=== PATIENT | male | born 1965 ===

== ENCOUNTER 2017-06-26 11:24 | Emergency (ER) | payer OTHER ==
[2017-06-26 12:11] VITALS: BMI 20.2
[2017-06-26] MEDS ORDERED: Sodium Chloride 0.9% 1,000 ML IV STA (12:38)
[2017-06-26 12:59] LABS: BASO % 0.3 % (0.0-2.0); EOS % 0.3 % (0.0-4.0); HEMOGLOBIN 12.7 g/dL (12.0-18.0); LYMPH # 0.9 K/uL (1.0-4.3); LYMPH % 18.6 % (20.0-40.0); MEAN CELL VOLUME 91.2 fl (80.0-94.0); MEAN CORPUSCULAR HEMOGLOBIN 31.3 pg (27.0-31.0); MEAN CORPUSCULAR HGB CONC 34.3 g/dL (33.0-37.0); MEAN PLATELET VOLUME 7.9 fl (7.2-11.7); MONO # 0.4 K/uL (0.0-0.8); MONO % 8.9 % (0.0-10.0); NEUT # 3.4 K/uL (1.8-7.0); NEUT % 71.9 % (50.0-75.0); NRBC % 0.1 % (0.0-0.0); RBC 4.06 Mil/uL (4.40-5.90); RED CELL DISTRIBUTION WIDTH 12.4 % (11.5-14.5); URINE BILIRUBIN NEGATIVE (NEGATIVE); URINE BLOOD NEGATIVE (NEGATIVE); URINE CLARITY CLEAR (Clear); URINE COLOR STRAW (YELLOW); URINE GLUCOSE (UA) >=500 mg/dL (Normal); URINE HYALINE CAST 0-2 /hpf (0-2); URINE LEUKOCYTE ESTERASE NEG Leu/uL (Negative); URINE PROTEIN NEGATIVE (NEGATIVE); URINE UROBILINOGEN 0.2-1.0 mg/dL (0.2-1.0); WHITE BLOOD COUNT 4.7 K/uL (4.8-10.8)
[2017-06-26 13:09] LABS: ALB/GLOB RATIO 1.2 (1.0-2.1); ALBUMIN 4.1 g/dL (3.5-5.0); ALT/SGPT 45 U/L (21-72); AST/SGOT 38 U/L (17-59); BLOOD UREA NITROGEN 14 mg/dl (9-20); CALCIUM 9.6 mg/dL (8.4-10.2); GFR AFRICAN-AMERICAN > 60; GFR NON-AFRICAN AMERICAN > 60; LIPASE 224 U/L (23-300)
--- NOTE | 2017-06-26 14:03 | CT ---
PROCEDURE: CT Abdomen and Pelvis without intravenous contrast HISTORY: LEFT FLANK PAIN-- COMPARISON: None. TECHNIQUE: Unenhanced study. Neither oral nor intravenous contrast administered. Radiation dose: Total exam DLP = 306.55 mGy-cm. This CT exam was performed using one or more of the following dose reduction techniques: Automated exposure control, adjustment of the mA and/or kV according to patient size, and/or use of iterative reconstruction technique. FINDINGS: LOWER THORAX: Unremarkable. LIVER: Unremarkable. No gross lesion or ductal dilatation. GALLBLADDER AND BILE DUCTS: Unremarkable. PANCREAS: Haziness involving the distal body and tail of the pancreas which is somewhat edematous raise the possibility of acute pancreatitis. SPLEEN: Unremarkable. ADRENALS: Unremarkable. No mass. KIDNEYS AND URETERS: Unremarkable. No hydronephrosis. No solid mass. VASCULATURE: Unremarkable. No aortic aneurysm. BOWEL: The stomach is collapsed accentuating thickening of the wall of the stomach particularly in the cardia and body. APPENDIX: Unremarkable. Normal appendix. PERITONEUM: Haziness LYMPH NODES: Unremarkable. No enlarged lymph nodes. BLADDER: Unremarkable. REPRODUCTIVE: Unremarkable. BONES: No acute fracture. OTHER FINDINGS: None. IMPRESSION: Mildly edematous distal pancreatic body and tail suggesting acute pancreatitis. Gastric wall thickening likely related to absence of oral contrast and a nondistended state.
--- NOTE | 2017-06-26 14:44 | ED PDOC ---
HPI: Abdomen Time Seen by Provider: 06/26/17 12:30 Chief Complaint (Nursing): Abdominal Pain Chief Complaint (Provider): ABDOMINAL PAIN History Per: Patient (51 Y/O MALE H/O DM HERE WITH LUQ PAIN INTERMITTENT X 1 WEEK. DENIES ANY VOMITING/DIARRHEA/FEVERS/CHILLS/DYSURIA. HAS H/O ALCOHOL INTAKE BUT DENIES ANY ABUSE OR RECENT INTAKE. NO H/O SURGERIES. DID NOT TAKE ANY OTC MEDICATIONS.) Past Medical History Reviewed: Historical Data, Nursing Documentation, Vital Signs Vital Signs: Last Vital Signs Temp 98.4 F 06/26/17 12:06 Pulse 73 06/26/17 12:06 Resp 16 06/26/17 12:06 BP 127/78 06/26/17 12:06 Pulse Ox 100 06/26/17 14:49 - Family History Family History: States: No Known Family Hx - Home Medications Home Medications: Ambulatory Orders Medication Instructions Recorded Ranitidine HCl [Zantac 75] 75 mg PO Q12 PRN #10 tablet 06/26/17 - Allergies Allergies/Adverse Reactions: Allergies Allergy/AdvReac Type Severity Reaction Status Date / Time pollen extracts Allergy COUGH Verified 06/26/17 12:14 fur Allergy COUGH Uncoded 06/26/17 12:14 Review of Systems ROS Statement: Except As Marked, All Systems Reviewed And Found Negative Gastrointestinal: Positive for: Abdominal Pain Physical Exam - Reviewed Nursing Documentation Reviewed: Yes Vital Signs Reviewed: Yes - Physical Exam Appears: Positive for: Well, Non-toxic, No Acute Distress Head Exam: Positive for: ATRAUMATIC, NORMAL INSPECTION, NORMOCEPHALIC Skin: Positive for: Normal Color, Warm, DRY Eye Exam: Positive for: EOMI, Normal appearance, PERRL ENT: Positive for: Normal ENT Inspection Neck: Positive for: Normal, Painless ROM Cardiovascular/Chest: Positive for: Regular Rate, Rhythm Respiratory: Positive for: CNT, Normal Breath Sounds Gastrointestinal/Abdominal: Positive for: Normal Exam, Soft, Tenderness (LUQ MILD TENDERNESS) Back: Positive for: Normal Inspection. Negative for: L CVA Tenderness Extremity: Positive for: Normal ROM Neurologic/Psych: Positive for: Alert, Oriented - Laboratory Results Result Diagrams: 06/26/17 12:47 06/26/17 12:47 - ECG O2 Sat by Pulse Oximetry: 100 - Progress ED Course And Treament: NS 1 LITER WIDE OPEN PEPCID 20 MG I V X [address] ABD/PELVIS: IMPRESSION: Mildly edematous distal pancreatic body and tail suggesting acute pancreatitis. Gastric wall thickening likely related to absence of oral contrast and a nondistended state. D/W GI FELLOW TRACKMAN FOR DR. VERONIKA CABAN. PATIENT TO F/U OUTPATIENT. Disposition - Clinical Impression Clinical Impression: Pancreatitis - Patient ED Disposition Is Patient to be Admitted: No - Disposition Referrals: Jackeline Arciniega MD [Medical Doctor] - Disposition: Routine/Home Disposition Time: 14:57 Condition: FAIR Additional Instructions: NO ALCOHOL NO FATTY FOODS HYDRATE WELL RETURN TO ED FOR WORSENING SYMPTOMS Prescriptions: Ranitidine HCl [Zantac 75] 75 mg PO Q12 PRN #10 tablet PRN Reason: Pain, Moderate (4-7) Instructions: Pancreatitis (DC) Forms: [facility] (Portuguese), [facility] ED School/Work Excuse
[2017-06-26 16:07] VITALS: BP 110/70; PULSE 72; RESP 20; TEMP 98; O2SAT 98
== END 2017-06-26 16:05 | disposition home or self-care (01) ==
LOC: H.ER 11:24
DX: K85.90 Acute pancreatitis without necrosis or infection, unspecified (principal)
CPT/HCPCS: 74176; 80053; 81003; 82948; 83690; 85025; 96374; 99282; J7040

== ENCOUNTER 2017-08-01 14:19 | Emergency (ER) | payer OTHER ==
[2017-08-01 14:20] VITALS: BMI 20.2
[2017-08-01 14:54] VITALS: O2SAT 98
--- NOTE | 2017-08-01 16:53 | ED PDOC ---
HPI: General Adult Time Seen by Provider: 08/01/17 15:02 Chief Complaint (Nursing): ENT Problem Chief Complaint (Provider): Ingestion of chemical, throat irritation History Per: Patient History/Exam Limitations: no limitations Onset/Duration Of Symptoms: Mins (prior to arrival) Current Symptoms Are (Timing): Still Present Additional Complaint(s): 51 year old male presents to the ED for evaluation after ingesting an all purpose surface wheat cleaner called Hydroxl Pro. 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 He states after taking a gulp of it, he spit it out. Reports that he doesn't think he ingested any, and if he did, it was very little. Currently, his only complaint is throat irritation. Otherwise, (-) fever, (-) nausea, (-) vomiting, (-) abdominal pain, (-) chest pain, (-) shortness of breath (-) drooling (-) difficulty swallowing. Patient reports he has been able to tolerate PO intake since ingestion occurred. PMD: Dr. Perkins Past Medical History Reviewed: Historical Data, Nursing Documentation, Vital Signs Vital Signs: Last Vital Signs Temp 96.6 F L 08/01/17 17:02 Pulse 78 08/01/17 17:02 Resp 18 08/01/17 17:02 BP 126/76 08/01/17 17:02 Pulse Ox 98 08/03/17 20:38 - Medical History PMH: Diabetes (type 2) - Surgical History Surgical History: No Surg Hx - Family History Family History: States: Unknown Family Hx - Social History Ex-Smoker (has not smoked in the last 12 months): Yes (quit in 1999) Alcohol: None Drugs: Denies - Home Medications Home Medications: Ambulatory Orders Medication Instructions Recorded Ranitidine HCl [Zantac 75] 75 mg PO Q12 PRN #10 tablet 06/26/17 - Allergies Allergies/Adverse Reactions: Allergies Allergy/AdvReac Type Severity Reaction Status Date / Time pollen extracts Allergy COUGH Verified 08/01/17 14:51 fur Allergy COUGH Uncoded 08/01/17 14:51 Review of Systems ROS Statement: Except As Marked, All Systems Reviewed And Found Negative Constitutional: Negative for: Fever ENT: Positive for: Other (throat irritation) Cardiovascular: Negative for: Chest Pain Respiratory: Negative for: Shortness of Breath Gastrointestinal: Negative for: Nausea, Vomiting, Abdominal Pain Physical Exam - Reviewed Nursing Documentation Reviewed: Yes Vital Signs Reviewed: Yes - Physical Exam Comments: GENERAL APPEARANCE: Patient is awake, alert, oriented x 3, in no acute distress. Resting comfortably. SKIN: (-) excoriations, (-) rash. HENT: (-) conjunctival injection, (-) chemosis. Oropharynx: clear (-) tongue or lip swelling, (-) tonsillar exudates. Faint pharyngeal erythema. Airway: patent (-) stridor, (-) hoarseness. Mucous membranes moist. Nares: Patent (-) rhinorrhea. NECK: Supple, FROM (-) lymphadenopathy, (-) tenderness. CARDIOVASCULAR: Normal rate and rhythm. (-) murmur CHEST: (-) rales, (-) wheezing, (-) dyspnea. Breath sounds equal bilaterally, nonlabored. Speaking full sentences. ABDOMEN: Soft. (-) tenderness, (-) distention, (-) guarding EXTREMITIES: (-) deformity NEURO: Mental status as above. Gait steady, speech clear. EOMI and painless. Pupils equal and reactive. - ECG O2 Sat by Pulse Oximetry: 98 (RA) Pulse Ox Interpretation: Normal Medical Decision Making Medical Decision Making: Initial Impression: chemical ingestion, throat irritation Time: 1620 Initial Plan: --Viscous Lidocaine 15 mL PO --Consult with poision control 1600 Consulted poison control, veterans employment representative Stella, who recommends to treat symptomatically, and as long as he is tolerating PO intake with no additional complaints, then no further intervention is required. 1650 On re-evaluation, patient reports improvement of symptoms, denies any SOB, difficulty swallowing, or facial swelling. On exam, patient remains AAOx3, in no acute distress. Lungs clear to auscultation, cardiac RRR, abdomen soft, non- tender, repeat neuro exam shows no focal findings. Tolerating PO intake without difficulty. VSS, stable for discharge. Lab/Diagnostic results d/w the patient in great detail. Diagnosis of chemical ingestion, throat irritation d/w the patient. Based on history, exam and diagnostic results, plan will be for outpatient follow up. Patient instructed to follow-up with pmd / referral provided / the clinic in 1- 2 days without fail. Advised to take medication as prescribed. Return to the emergency room at any time for any new or worsening symptoms. Patient states he fully agrees with and understands discharge instructions. States that he agrees with the plan and disposition. Verbalized and repeated discharge instructions and plan. I have given the patient opportunity to ask any additional questions. Scribe Attestation: Documented by Julieta Sarmiento, acting as a scribe for Shilpi Skinner PA-C. Provider Scribe Attestation: All medical entries made by the Scribe were at my direction and personally dictated by me. I have reviewed the chart and agree that the record accurately reflects my personal performance of the history, physical exam, medical decision making, and the department course for this patient. I have also personally directed, reviewed, and agree with the discharge instructions and disposition. Disposition - Clinical Impression Clinical Impression: Throat irritation - Patient ED Disposition Is Patient to be Admitted: No Counseled Patient/Family Regarding: Diagnosis, Need For Followup - Disposition Referrals: Yissel Perkins MD [Family Provider] - Disposition: Routine/Home Disposition Time: 17:00 Condition: STABLE Additional Instructions: FOLLOW UP WITH PMD IN 1-2 DAYS FOR FURTHER EVALUATION. RETURN TO ED WITH ANY NEW OR WORSENING SYMPTOMS. Instructions: Sore Throat, Adult (DC), Chemical Ingestion (DC) Forms: [employer] (Croatian) Print Language: LEBANESE - POA Present On Arrival: None
[2017-08-01 17:03] VITALS: BP 126/76; PULSE 78; RESP 18; TEMP 96.6
== END 2017-08-01 17:03 | disposition home or self-care (01) ==
LOC: H.ER 14:19
DX: R07.0 Pain in throat (principal); E11.9 Type 2 diabetes mellitus without complications